=== PATIENT | female | born 1935 | race Caucasian/White ===

== ENCOUNTER 2017-09-03 22:28 | Inpatient (IN) | payer OTHER ==
[~2017-09-03] VITALS: Ht 152.4 cm; Wt 78.5 kg
[~2017-09-03 22:28] MED LIST: ATORVASTATIN CA10 MG PO; BENICAR HCT 251 TAB PO; BUFFERIN LOW DO81 MG PO; BUSPIRONE10 MG PO; CEPHALEXIN500 MG PO; DOCUSATE SODIU100 MG PO; MELATONIN1 MG PO; MELOXICAM15 MG PO; METOPROLOL SUCC25 MG PO; MIRALAX17 GM PO; NORVASC 5MG TAB5 MG PO; PERCOCET 325 MG1 TA2 PO; SILVADENE CREAM50 GM TOP; TRAMADOL50 MG PO; XANAX0.5 MG PO
--- NOTE | 2017-09-03 23:51 | RADIOLOGY REPORT ---
EXAMINATION: XR CHEST CLINICAL INFORMATION: Altered mental status. COMPARISON: 11/22/2013 TECHNIQUE: 2 views of the chest were obtained. FINDINGS: Normal cardiac and mediastinal silhouette. Low lung volumes with elevation right hemidiaphragm. Focal opacity from mild basilar atelectasis or focal infiltrate. No pulmonary edema. No significant effusion. No pneumothorax. Degeneration in the dorsal spine. IMPRESSION: Focal atelectasis or infiltrate in the right lower lung. Low lung volumes.
--- NOTE | 2017-09-03 23:56 | ED AMS/SEIZURE/WEAK/DIZZY ---
History of Present Illness General Chief Complaint: Altered Mental Status Stated Complaint: AMS Source: patient, family, old records Exam Limitations: dementia Vital Signs & Intake/Output Vital Signs & Intake/Output Vital Signs Date Time Temp Pulse Resp B/P B/P Pulse O2 O2 Flow FiO2 Mean Ox Delivery Rate 09/03 2230 96.0 83 20 197/85 98 Room Air ED Intake and Output 09/04 0000 09/03 1200 Intake Total Output Total Balance Patient 220 lb Weight Weight Estimated Measurement Method Allergies Coded Allergies: NO KNOWN ALLERGIES (02/26/14) Reconcile Medications Amlodipine (Norvasc 5MG Tab) 5 MG TABLET 1 TAB PO DAILY BLOOD PRESSURE ( Reported) Aspirin (Children's Aspirin) 81 MG TAB.CHEW 1 TAB PO DAILY HEART HEALTH ( Reported) Atorvastatin Calcium (Lipitor) 10 MG TABLET 1 TAB PO QPM CHOLESTEROL ( Reported) BUSPIRONE HCL (Buspirone HCl) 10 MG TABLET 1 TAB PO BID ANXIETY (Reported) Docusate Sodium 100 MG SGL 100 MG PO BID PRN CONSTIPATION Melatonin 1 MG TABLET 1 TAB PO AT BEDTIME SLEEP (Reported) Meloxicam 15 MG TABLET 1 TAB PO DAILY PAIN (Reported) Metoprolol Succinate 25 MG TAB.ER.24H 1 TAB PO DAILY BLOOD PRESSURE (Reported ) OLMESARTAN/HYDROCHLOROTHIAZIDE (Benicar Hct 40-25 MG Tablet) 40 MG-25 MG TABLET 1 TAB PO DAILY BLOOD PRESSURE (Reported) OXYCODONE HCL/ACETAMINOPHEN (Percocet 5-325 MG Tablet) 325 MG/5 MG TAB 1 TAB PO Q4-6 PRN PRN PAIN Polyethylene Glycol 3350 (Miralax) 17 GRAM/DOSE POWDER 17 GM PO DAILY CONSTIPATION (Reported) mix with water, juice, soda, coffee or tea Silver Sulfadiazine (Silvadene Cream 50GM ) 1 % CREAM..G. 1 ZEE TOP TIDPRN PRN WOUND TRAMADOL HCL (Tramadol) 50 MG TABLET 1 TAB PO DAILY PAIN (Reported) Core Measure Meds Pre-Hospital aspirin Triage Note: PT HERE WITH SON. PER SON PT HAS DEMENTIA AND WAS AT NEIGHBORS HOUSE SAYING THAT THERE WERE 100 PEOPLE OVER. POLICE WERE CALLED ALONG WITH SON. SON REPORTS THAT PT IS GETTING WORSE. SON FEELS THAT MOTHER NEEDS [employer]AC[employer]. SON REPORTS MOM WAS TAKING NAMENDIA AND RAN OUT A WEEK AGO. Triage Nurses Notes Reviewed? yes Onset: 1 month Duration: week(s):, changing over time, continues in ED, getting worse, intermittent Timing: recent history Injury Environment: home Severity: moderate, severe No Modifying Factors: none LMP (ages 10-50): post menopausal : No Patient currently breastfeeds: No HPI: 1 month prior to admission patient's son reports she has been becoming more confused with paranoia confabulation and hallucination of people in the home. There has been no fever chills nausea vomiting diarrhea abdominal pain chest pain shortness of breath dysuria rash bleeding. Currently she complains of headache and right shoulder pain with movement. Past History Travel History Traveled to [place] past 21 day No Medical History Any Pertinent Medical History? see below for history Neurological: dementia, TIA EENT: HEARING LOSS Cardiovascular: hypertension Respiratory: NONE Gastrointestinal: NONE Hepatic: NONE Renal: NONE Musculoskeletal: disk herniation, degen joint disease, osteoarthritis Psychiatric: NONE Endocrine: NONE Blood Disorders: NONE Cancer(s): NONE History of MRSA: No History of VRE: No History of CDIFF: No Tetanus Vaccine: 02/23/14 Surgical History Surgical History: non-contributory Psychosocial History Who do you live with Son Services at Home None What is your primary language Yoruba Tobacco Use: Never used ETOH Use: denies use Illicit Drug Use: denies illicit drug use Family History Hx Contributory? No Review of Systems Review of Systems Constitutional: Reports: no symptoms. EENTM: Reports: no symptoms. Respiratory: Reports: no symptoms. Cardiovascular: Reports: no symptoms. GI: Reports: no symptoms. Genitourinary: Reports: no symptoms. Musculoskeletal: Reports: no symptoms. Skin: Reports: no symptoms. Neurological/Psychological: Reports: see HPI, cognitive dysfunction, confusion, dementia. Hematologic/Endocrine: Reports: no symptoms. Immunologic/Allergic: Reports: no symptoms. All Other Systems: Reviewed and Negative Physical Exam Physical Exam General Appearance: well developed/nourished, alert, awake, anxious, comfortable , obese Head: atraumatic, normal appearance Eyes: Bilateral: normal appearance, PERRL, EOMI. Ears, Nose, Throat: normal pharynx, normal ENT inspection Neck: normal inspection, supple, full range of motion, no midline tenderness Respiratory: chest non-tender, no respiratory distress, quiet respiration, lungs clear, decreased breath sounds Cardiovascular: regular rate/rhythm, normal peripheral pulses, norml femoral pulses equa Peripheral Pulses: 4+ carotid (R), 4+ carotid (L) Gastrointestinal: normal bowel sounds, soft, non-tender, no organomegaly Back: normal inspection, normal range of motion, no vertebral tenderness Extremities: normal range of motion, no ligament instability Neurologic/Psych: no motor/sensory deficits, awake, alert, oriented x 3, normal gait, normal mood/affect, engine inspector II-XII nml as tested Reflexes: 2+: bicep (R), bicep (L). Skin: intact, normal color, warm/dry Lymphatic: no anterior cervical yajaira Core Measures ACS in differential dx? No CVA/TIA Diagnosis No Sepsis Present: No Sepsis Focused Exam Completed? No Progress Differential Diagnosis: CVA/stroke, dehydration, electrolyte imbalance, hypoglycemia, pneumonia Plan of Care: Orders Procedure Date/time Status Regular Diet 09/04 B Active Patient Data 09/04 50 Active OXYGEN SETUP (GEN) 09/04 12 Active Saline Lock 09/04 12 Active Admit to inpatient 09/04 12 Active Vital Signs 09/04 12 Active Activity/Ambulation 09/04 12 Active BLOOD CULTURE 09/04 12 Active Code Status 09/04 12 Active URINALYSIS 09/03 2257 Active TROPONIN LEVEL 09/03 2257 Complete MAGNESIUM 09/03 2257 Complete COMPREHENSIVE METABOLIC PANEL 09/03 2257 Complete CBC WITHOUT DIFFERENTIAL 09/03 2257 Complete EKG 09/03 2257 Active Laboratory Tests 09/03/17 2359: Anion Gap 10, Estimated GFR 60, BUN/Creatinine Ratio 27.8 H, Glucose 118 H, Calcium 9.3, Magnesium 2.0, Total Bilirubin 0.6, AST 25, ALT 29, Alkaline Phosphatase 71, Troponin I 0.03, Total Protein 7.0, Albumin 4.0, Globulin 3.0, Albumin/Globulin Ratio 1.3, CBC w Diff NO MAN DIFF REQ, RBC 5.01, MCV 82.3, MCH 27.7, MCHC 33.7, RDW 14.3, MPV 6.9 L, Gran % 59.9, Lymphocytes % 27.1, Monocytes % 10.2 H, Eosinophils % 2.3, Basophils % 0.5, Absolute Granulocytes 3.5, Absolute Lymphocytes 1.6, Absolute Monocytes 0.6, Absolute Eosinophils 0.1, Absolute Basophils 0 Microbiology 09/04 12 BLOOD: Blood Culture - ORD 09/04 12 BLOOD: Blood Culture - ORD Diagnostic Imaging: Viewed by Me: Radiology Read, CT Scan. Discussed w/RAD: Radiology Read, CT Scan. Radiology Impression: No CT acute intracranial pathology. Chronic changes cerebral volume loss and chronic microangiopathy changes CXR Impression: Focal atelectasis or infiltrate in the right lower lung. Low lung volumes. Initial ED EKG: normal axis, normal intervals, normal p-waves, normal QRS complex, normal sinus rhythm, no ST T wave changes Prior EKG: unchanged Rhythm Strip: normal sinus rhythm Departure Departure Time of Disposition: 124 Disposition: STILL A PATIENT Condition: Stable Clinical Impression Primary Impression: Pneumonia Secondary Impressions: Advanced dementia Referrals: Leesa WARREN,Shun Cobb (PCP/Family) Departure Forms: Customer Survey General Discharge Information Admission Note Spoke With: Rudy Azar MD Documentation of Exam: Documentation of any treatments & extenuating circumstances including Concerns Regarding Discharge (functional status, medication knowledge or non-compliance, living conditions, etc.) that warrant an admission rather than observation: IV antibiotics medication adjustment follow blood cultures ensure safety continuing care discharge planning
--- NOTE | 2017-09-04 00:03 | CT SCAN REPORT ---
EXAMINATION: CT HEAD WITHOUT CONTRAST CLINICAL INFORMATION: Increased confusion COMPARISON: None available for comparison. TECHNIQUE: Contiguous axial imaging was performed from the skull base to vertex without intravenous administration of contrast. FINDINGS: There is no evidence of acute intracranial hemorrhage or territorial infarction. No abnormal mass effect or midline shift is seen. Damon to white matter differentiation is well preserved. No extra-axial fluid collections are identified. Mild cerebral volume loss with subchondral ventricle prominence. Calcification in bilateral basal ganglia. Moderate periventricular and deep white matter hypodensities compatible with chronic microangiopathy. No acute calvarial abnormality.. Opacification of the right mastoid air cells. Left mastoid air cells, paranasal sinuses appear unremarkable. IMPRESSION: No CT acute intracranial pathology. Chronic changes cerebral volume loss and chronic microangiopathy changes.
[2017-09-04 00:10] LABS: ABSOLUTE BASOPHIL COUNT 0 /CUMM (0.0-0.2); ABSOLUTE EOSINOPHIL COUNT 0.1 /CUMM (0.0-0.7); ABSOLUTE GRANULOCYTE CT 3.5 /CUMM (1.4-6.5); ABSOLUTE LYMPH COUNT 1.6 /CUMM (1.2-3.4); ABSOLUTE MONOCYTE COUNT 0.6 /CUMM (0.10-0.60); BASOPHIL % 0.5 % (0.0-2.0); EOSINOPHIL % 2.3 % (0-5); GRANULOCYTE % 59.9 % (42.2-75.2); HEMATOCRIT 41.3 % (37-47); MEAN CORPUSCULAR HGB 27.7 PG (27.0-31.0); MEAN CORPUSCULAR HGB CONC 33.7 G/DL (33.0-37.0); MEAN CORPUSCULAR VOLUME 82.3 FL (81.0-99.0); MEAN PLATELET VOLUME 6.9 FL (7.4-10.4); PLATELET COUNT 284 /CUMM (130-400); RBC DISTRIBUTION WIDTH 14.3 % (11.5-14.5); RED BLOOD CELL CT 5.01 /CUMM (4.20-5.40); WHITE BLOOD CELL COUNT 5.8 /CUMM (4.8-10.8)
--- NOTE | 2017-09-04 00:57 | History & Physical ---
Darnell Rush MD 09/04/17 0056: General Information and HPI MD Statement: I have seen and personally examined DESTINY NG and documented this H&P. The patient is a 82 year old F who presented with a patient stated chief complaint of [pnuemonia, worsening dementia]. Source of Information: patient, family Exam Limitations: not alert/orientated, dementia History of Present Illness: Patient is an 82-year-old female with a PMH significant for dementia, HTN, HLD, CAD, bilateral carotid artery stenosis, TIAs, chronic back pain who was brought in by her son for worsening confusion, and bizarre behavior. Patient lives with her son however he is not present for large portions of the day. 2 days prior to admission the patient's son noticed that she had slurred speech and facial droop, he called 911 however the patient refused to get the ambulance, these symptoms also quickly resolved. Patient also suffered an unwitnessed fall 2 weeks ago. Patient has dementia at baseline and over the last 2-3 years patient 's son has noticed progressive worsening with bizarre behavior, worsening confusion, hallucinations. Today the patient went to her neighbor's house complaining that there were 100s of people in her house, when in reality nobody was there. Recently when the son believes the patient alone she franks pots while trying to cook. The patient has been refusing to go to her doctor's appointments. Patient has been complaining of constipation recently. Son does not know when her last bowel movement was. Per the son the patient has not been complaining of any she, fever, nausea, chest pain, shortness of breath. Allergies/Medications Allergies: Coded Allergies: NO KNOWN ALLERGIES (02/26/14) Past History Travel History Traveled to [place] past 21 day No Medical History Neurological: dementia, TIA EENT: HEARING LOSS Cardiovascular: CAD, hypertension, carotid artery stenosis Respiratory: NONE Gastrointestinal: NONE Hepatic: NONE Renal: NONE Musculoskeletal: disk herniation, degen joint disease, osteoarthritis Psychiatric: NONE Endocrine: NONE Blood Disorders: NONE Cancer(s): NONE History of MRSA: No History of VRE: No History of CDIFF: No Tetanus Vaccine: 02/23/14 Surgical History Surgical History: non-contributory Past Family/Social History Family History Relations & Conditions if any Relation not specified for: *No pertinent family history Psychosocial History Where do you live? Home Who Do You Live With? child Services at Home: None Smoking Status: Former Smoker ETOH Use: denies use Illicit Drug Use: denies illicit drug use Living Will? no Functional Ability ADLs Independent: dressing, eating, toileting. Needs Assist: bathing. Review of Systems Review of Systems Constitutional: Reports: see HPI. EENTM: Reports: no symptoms. Cardiovascular: Reports: no symptoms. Respiratory: Reports: no symptoms. GI: Reports: no symptoms. Genitourinary: Reports: no symptoms. Musculoskeletal: Reports: no symptoms. Skin: Reports: no symptoms. Neurological/Psychological: Reports: see HPI, confusion, dementia. Hematologic/Endocrine: Reports: no symptoms. Exam & Diagnostic Data Last 24 Hrs of Vital Signs/I&O Vital Signs Date Time Temp Pulse Resp B/P B/P Pulse O2 O2 Flow FiO2 Mean Ox Delivery Rate 09/04 0315 Room Air 09/04 0308 97.6 72 18 150/70 94 Room Air 09/04 0216 97.1 72 18 148/79 96 Room Air 09/03 2230 96.0 83 20 197/85 98 Room Air Intake & Output 09/04 0800 09/04 0000 09/03 1600 Intake Total Output Total 400 Balance -400 Output, Urine 400 Patient 179 lb 220 lb Weight Weight Bed scale Estimated Measurement Method Physical Exam General Appearance Alert, No Acute Distress, uncooperative with portions of the exam, oriented to person, but not place or time, answers some questions inapropriately Skin Temp/Moisture Exam: Warm/Dry Sepsis Skin Exam (color): Normal for Ethnicity Cardiovascular Regular Rate, Normal S1, Normal S2 Lungs Clear to Auscultation Abdomen Normal Bowel Sounds, Soft, No Tenderness Neurological Normal Tone, Sensation Intact, Cranial Nerves 3-12 NL Extremities 2+ pitting edema of the distal LEs Vascular Normal Pulses Sepsis Peripheral Pulse Location: Radial Sepsis Peripheral Pulse Exam: Normal Last 24 Hrs of Labs/Wilder: Laboratory Tests 09/04/17 0155: Urine Color YEL, Urine Clarity CLEAR, Urine pH 6.0, Ur Specific [place] 1.010, Urine Protein NEG, Urine Ketones NEG, Urine Nitrite NEG, Urine Bilirubin NEG, Urine Urobilinogen 0.2, Ur Leukocyte Esterase TRACE H, Ur Microscopic SEDIMENT EXAMINED, Urine WBC 1-3 H, Ur Epithelial Cells RARE, Urine Hemoglobin NEG, Urine Glucose NEG 09/03/17 2359: Anion Gap 10, Estimated GFR 60, BUN/Creatinine Ratio 27.8 H, Glucose 118 H, Calcium 9.3, Magnesium 2.0, Total Bilirubin 0.6, AST 25, ALT 29, Alkaline Phosphatase 71, Troponin I 0.03, Total Protein 7.0, Albumin 4.0, Globulin 3.0, Albumin/Globulin Ratio 1.3, CBC w Diff NO MAN DIFF REQ, RBC 5.01, MCV 82.3, MCH 27.7, MCHC 33.7, RDW 14.3, MPV 6.9 L, Gran % 59.9, Lymphocytes % 27.1, Monocytes % 10.2 H, Eosinophils % 2.3, Basophils % 0.5, Absolute Granulocytes 3.5, Absolute Lymphocytes 1.6, Absolute Monocytes 0.6, Absolute Eosinophils 0.1, Absolute Basophils 0 Microbiology 09/04 253 URINE ROUT: Urine Culture - COLB 09/05 219 BLOOD: Blood Culture - RECD 09/04 213 BLOOD: Blood Culture - RECD Diagnostic Data CXR Results FINDINGS: Normal cardiac and mediastinal silhouette. Low lung volumes with elevation right hemidiaphragm. Focal opacity from mild basilar atelectasis or focal infiltrate. No pulmonary edema. No significant effusion. No pneumothorax. Degeneration in the dorsal spine. IMPRESSION: Focal atelectasis or infiltrate in the right lower lung. Low lung volumes. Other Results CT head w/o IV contrast FINDINGS: There is no evidence of acute intracranial hemorrhage or territorial infarction. No abnormal mass effect or midline shift is seen. Damon to white matter differentiation is well preserved. No extra-axial fluid collections are identified. Mild cerebral volume loss with subchondral ventricle prominence. Calcification in bilateral basal ganglia. Moderate periventricular and deep white matter hypodensities compatible with chronic microangiopathy. No acute calvarial abnormality.. Opacification of the right mastoid air cells. Left mastoid air cells, paranasal sinuses appear unremarkable. IMPRESSION: No CT acute intracranial pathology. Chronic changes cerebral volume loss and chronic microangiopathy changes. Assessment/Plan Assessment: Patient is an 82-year-old female with a PMH significant for dementia, HTN, HLD, CAD, bilateral carotid artery stenosis, TIAs, chronic back pain who was brought in by her son for worsening confusion, and bizarre behavior. Patient has had worsening dementia, son does not believe that he can care for her anymore, CXR showing atelectasis versus infiltrate of the right lower lobe. Vital signs on admission: T 96, HR 83, BP 187/85 (decreased 148/85), pulse ox 98 % on room air Labs significant for mildly elevated BUN and UA showing trace leukocyte esterase , WBC 13 Problem list #Worsening dementia #Possible aspiration versus community-acquired pneumonia, patient is afebrile with no leukocytosis but chest x-ray showing possible right lower lobe infiltrate #patient's son reports significant worsening cognitive decline with worrisome symptoms including burning pots/pans while cooking and unwitnessed fall, with the son being absent for large portions of time, questionable case of neglect #Chronic medical problems Plan -Admit to general medicine -Continue IV Unasyn -Formal swallow eval in a.m. -Follow-up blood and urine cultures -PT/OT in a.m. -Continue home medications -Goals of care discussion with patient and son about long-term accommodations given that some is no longer comfortable caring for the patient at home Diet: Heart healthy, mechanical soft, regular thin liquids DVT prophylaxis: Lovenox, Alps CODE STATUS: DNR/DNI As Ranked By This Provider Problem List: 1. Pneumonia 2. Advanced dementia Core Measures/Misc (02/20) Acute Coronary Syndrome ACS Diagnosis: No Congestive Heart Failure Congestive Heart Failure Diagnosis No Cerebrovascular Accident CVA/TIA Diagnosis: No VTE (View Protocol) VTE Risk Factors Age>40 No Mechanical VTE Prophylaxis d/t N/A MechProphylax Ordered No VTE Pharm Prophylaxis d/t NA PharmProphylax ordered Sepsis (View protocol) Sepsis Present: No Jose Maria Falcon 09/04/17 0228: General Information and HPI Allergies/Medications Home Med list Amlodipine Besylate (Norvasc) 5 MG TABLET 1 TAB PO DAILY HTN (Reported) Aspirin (Aspirin*) 81 MG TAB.CHEW 1 TAB PO DAILY HEART (Reported) Docusate Sodium (Colace) 100 MG CAPSULE 1 CAP PO BID CONSTIPATION (Reported) Metoprolol Succinate 50 MG TAB.ER.24H 1 TAB PO DAILY HTN (Reported) Olmesartan/Hydrochlorothiazide (Benicar Hct 40-12.5 MG Tablet) 40 MG-12.5 MG TABLET 1 TAB PO DAILY HTN (Reported) Polyethylene Glycol 3350 (Miralax) 17 GRAM POWD.PACK 1 PAC PO DAILY CONSTIPATION (Reported) dissolve in water Resident Review Statement Resident Statement: examined this patient, discussed with epidemiology intern, agreed with epidemiology intern, reviewed images Other Findings: 82-year-old woman from home, with bilateral hearing impairment, past medical history significant for dementia, hypertension, hyperlipidemia, coronary disease , bilateral severe carotid artery stenosis, multiple TIAs, chronic back pain, depression brought in by son for bizarre behavior. Patient is a poor historian and history was obtained from her son who is present in the room. Patient lives with her son at home. He has noticed that her dementia has been progressively worsening since the past 2 years. Yesterday evening she was home alone and she went to her next door neighbors to complain that there were 100 people in her house. On the son had called 911 as he noticed her slurring speech with left-sided facial droop. By the time EMS came her symptoms had resolved and she refused to go to the hospital. 2 weeks ago she had an witnessed fall. Son states that she is not reliable with regards to cooking but however she does bath and ambulate independently. She refused home services about 3 years ago. She has not complained of any cough, fever, chills, nausea, vomiting abdominal pain, diarrhea, urinary symptoms. Endorses constipation. Vitals temperature 96.0, heart rate 83, blood pressure 187/85--> 148/79, 98% on room air examination as above. Labs unremarkable Problem list: Dementia with bizarre behavior/hallucination Community acquired pneumonia vs aspiration pneumonia Hypertension Coronary artery disease/bilateral carotid artery stenosis Assessment/plan: Admitted to general medicine floor, vital per protocol Will continue with IV Unasyn, swelling eval in the a.m., pending blood cultures and urinary culture PT/OT to evaluate and treat geriatric consult on tuesday continue home meds of toprol, benicar converted to losartan and htcz and aspirin heart healthy diet dvt ppx sc lovenox Code status DNR/DNI will need LTC placement Rudy Azar MD 09/04/17 0541: Attending MD Review Statement Attending Statement Attending MD Statement: examined this patient, discuss w/resident/PA/GAMING TABLE OPERATOR, agreed w/resident/PA/GAMING TABLE OPERATOR, reviewed EMR data (avail) Attending Assessment/Plan: Ms. Ng is 82-year-old female with history of worsening dementia, hypertension, dyslipidemia, bilateral significant carotid artery stenosis, multiple transient ischemic attacks and is being brought to the ED by the son has the patient had been acting differently recently. Apparently patient has been hallucinating and knocking on neighbors doors and confused. Patient has hard of hearing and unable to obtain much history. On examination patient was initially hypertensive with systolic blood pressure in the 180s, however repeat blood pressure was found to be 148/79, saturating well controlled man with heart rate of 83 and afebrile Chest x-ray shows evidence of right-sided lower lobe infiltrate. Assessement 1. Worsening dementia 2. Right lower lobe infiltrate - CAP vs Aspiration 3. Hypertension Plan Obtain MMSE in the AM. Consider Lucila-Psych consult Not taking namenda recently Initiate IV Unasyn - recieved one dose of Ceftriaxone and Azithromax in ER Needs case management and PT evaluation Son appears to be caregiver - however not very reliabe ?Elderly neglect - appreciate nephrology social worker asssitance Swallow evaluation to assess for microaspiration Continue with other home medications
[2017-09-04] MEDS ORDERED: NORVASC5 M1 PO (02:22)
[2017-09-04] MEDS ORDERED: ASPIRIN81 M4 PO (02:22)
[2017-09-04] MEDS ORDERED: COLACE100 M1 PO (02:22)
[2017-09-04] MEDS ORDERED: BENICAR HCT 401 EACH PO (02:23)
[2017-09-04] MEDS ORDERED: METOPROLOL SUCC50 M2 PO (02:23)
[2017-09-04] MEDS ORDERED: MIRALAX17 G1 PO (02:23)
[2017-09-04 03:08] VITALS: BP 150/70
[2017-09-04 07:33] VITALS: BP 142/80
--- NOTE | 2017-09-04 13:53 | PN- Att Addend ---
Attending Addendum Attending Brief Note Patient seen and examined. She is in 82-year-old female with past medical history of dementia, coronary artery disease, hypertension and carotid disease who is here with worsening dementia, inability to care for herself at home and issues with care at home. Despite a lack of fever or white count she has a right lower lobe infiltrate and has been started empirically on IV Unasyn for the possibility of aspiration pneumonia. She is eating a diet now and a formal swallow eval is pending. Continued her Norvasc, metoprolol, hydrochlothiazide and arb for the high blood pressure and continue the baby aspirin. PT eval, case management eval and follow-up on swallow eval.
[2017-09-04 14:37] VITALS: BP 122/60
[2017-09-05 05:55] VITALS: BP 128/68
--- NOTE | 2017-09-05 07:17 | PN- Housestaff ---
David Simpson 09/05/17 0716: Subjective Follow-up For: Worsening dementia RLL infiltrate - CAP vs Aspiration Subjective: Patient required a jeff and soft restraints after trying to get OOB and pull IV lines. She was given IV Zyprexa 5 mg Review of Systems Constitutional: Reports: see HPI. Objective Last 24 Hrs of Vital Signs/I&O Vital Signs Date Time Temp Pulse Resp B/P B/P Pulse O2 O2 Flow FiO2 Mean Ox Delivery Rate 09/05 554 98.4 74 20 128/68 94 Room Air 09/04 1600 Room Air 09/04 1437 99.0 66 19 122/60 94 Room Air 09/04 0914 78 140/80 09/04 0733 97.9 80 20 142/80 96 Room Air Intake & Output 09/05 0800 09/05 0000 09/04 1600 Intake Total 240 100 730 Output Total 300 300 800 Balance -60 -200 -70 Intake, IV 130 Intake, Oral 240 100 600 Number 0 Bowel Movements Output, Urine 300 300 800 Patient 173 lb Weight Physical Exam General Appearance: Alert Cardiovascular: Normal S1, Normal S2 Lungs: Clear to Auscultation, Normal Air Movement Abdomen: Normal Bowel Sounds, Soft, No Tenderness Current Medications: Current Medications Sig/Keisha Start time Last Medication Dose Route Stop Time Status Admin Amlodipine Besylate 5 MG DAILY 09/04 1000 AC 09/04 PO 0914 Ampicillin Sodium/ 3,000 MG Q6 09/04 0600 AC 09/05 Sulbactam Sodium IV 0528 Sodium Chloride 100 ML Aspirin 81 MG DAILY 09/04 1000 AC 09/04 PO 0917 Docusate Sodium 100 MG DAILY NEEDED PRN 09/04 0145 AC PO Enoxaparin Sodium 40 MG DAILY 09/04 1000 AC 09/04 SC 0914 Hydrochlorothiazide 12.5 MG DAILY 09/04 1000 AC 09/04 PO 0916 Influenza Virus 0.5 ML ONCE ONE 09/04 1000 DC Vaccine IM 09/04 1001 Losartan Potassium 100 MG DAILY 09/04 1000 AC 09/04 PO 0914 Metoprolol Succinate 50 MG DAILY 09/04 1000 AC 09/04 PO 0915 Olanzapine 5 MG ONCE ONE 09/04 1845 DC 09/04 IM 09/04 1846 1855 Polyethylene Glycol 17 GM DAILY 09/04 1000 AC PO Last 24 Hrs of Lab/Wilder Results Last 24 Hrs of Labs/Mics: Laboratory Tests 09/05/17 0650: Sodium Pending, Potassium Pending, Chloride Pending, Carbon Dioxide Pending, Anion Gap Pending, BUN Pending, Creatinine Pending, BUN/Creatinine Ratio Pending , CBC w Diff Pending, WBC Pending, RBC Pending, Hgb Pending, Hct Pending, MCV Pending, MCH Pending, MCHC Pending, RDW Pending, Plt Count Pending, MPV Pending Lines/Diet/Fluids Restraints: Jeff, right wrist, left wrist Assessment/Plan Assessment: Mr. Corado an 82-year-old female with a PMH significant for dementia, HTN, HLD, CAD, bilateral carotid artery stenosis, TIAs, chronic back pain who was brought in by her son for worsening confusion, and bizarre behavior. Problem list: Worsening dementia RLL infiltrate - ?CAP vs Aspiration Plan: Discontinue IV Unasyn, watch off antibiotics Follow-up blood and urine cultures Formal swallow eval today TSH/T4, Lyme titer, Vit B12, Folate PT/OT Psych recommendations appreciated Will discuss with family if patient's current symptoms are baseline Diet: Heart healthy, mechanical soft, regular thin liquids DVT prophylaxis: Lovenox, Alps CODE STATUS: DNR/DNI Problem List: 1. Advanced dementia 2. Pneumonia Pain Ratin Pain Location: NA Pain Goal: Remain pain free Pain Plan: NA Tomorrow's Labs & Rationales: none Mirela WARREN,Josephine 09/05/17 1143: Attending MD Review Statement Attending Statement Attending MD Statement: examined this patient, discuss w/resident/PA/POST HOLE DIGGING MACHINE OPERATOR, agreed w/resident/PA/POST HOLE DIGGING MACHINE OPERATOR, reviewed EMR data (avail), discussed with nursing, discussed with case mgmt, amended to note Attending Assessment/Plan: Patient seen and examined. Mildly agitated. Bilateral wrist restraints in place. Unable to hold a conversation with the patient due to dementia. Did not appear to be in any painful or respiratory distress. On examination heart sounds are regular. Lungs are clear. She has no peripheral edema. Abdomen is soft and nontender. Laboratory data shows normal CBC her sodium level is trending upwards. She is afebrile. She has no leukocytosis. Chest x-ray does not show any convincing evidence of pneumonia at this time. She is not requiring oxygen supplementation. She has no respiratory symptoms. Appears highly unlikely that patient has pneumonia at this time. Problems: 1. Dementia with behavioral disturbance. Per family's report patient's current mental status is not baseline suggesting an acute delirium. 2. Hypernatremia. 3. Hypertension 4. Coronary artery disease 5. Query TIA prior to admission. Plan: -Patient does not appear to have any acute metabolic etiology to her altered mentation that led to hospitalization. At this time she is hyponatremic level because an exacerbation of any underlying delirium. -Calculate free water deficit and correct with D5W. -Correct hypokalemia orally. -Psychiatric consultation for assistance in managing her dementia with behavioral changes. -Avoid all delirium triggers. De-escalate restraints as tolerated. -Please call son to set up family meeting for goals of care discussion. Patient will benefit from geriatric and palliative care follow-up in the outpatient setting. -Repeat serum chemistry in a.m. No need to repeat CBCs tomorrow unless there is a change in her clinical condition.
[2017-09-05 08:16] LABS: ABSOLUTE BASOPHIL COUNT 0.1 /CUMM (0.0-0.2); ABSOLUTE EOSINOPHIL COUNT 0.1 /CUMM (0.0-0.7); ABSOLUTE GRANULOCYTE CT 5.4 /CUMM (1.4-6.5); ABSOLUTE LYMPH COUNT 1.2 /CUMM (1.2-3.4); ABSOLUTE MONOCYTE COUNT 0.8 /CUMM (0.10-0.60); BASOPHIL % 0.8 % (0.0-2.0); GRANULOCYTE % 71.5 % (42.2-75.2); HEMATOCRIT 42.5 % (37-47); MEAN CORPUSCULAR HGB 27.7 PG (27.0-31.0); MEAN CORPUSCULAR HGB CONC 33.4 G/DL (33.0-37.0); MEAN PLATELET VOLUME 7.4 FL (7.4-10.4); PLATELET COUNT 284 /CUMM (130-400); RBC DISTRIBUTION WIDTH 14.5 % (11.5-14.5); RED BLOOD CELL CT 5.11 /CUMM (4.20-5.40); WHITE BLOOD CELL COUNT 7.5 /CUMM (4.8-10.8)
[2017-09-05 16:12] VITALS: BP 180/86
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
--- NOTE | 2017-09-05 19:42 | ULTRASOUND REPORT ---
EXAMINATION: US DUPLEX CAROTID AND VERTEBRAL CLINICAL INFORMATION: Confusion. Transient ischemic attack. COMPARISON: CT images of the neck from 11/22/2014. TECHNIQUE: Real-time ultrasound and Doppler techniques (integrating B-mode 2D vascular images, Doppler spectral analysis and color flow Doppler imaging) were utilized to interrogate the extracranial carotid and vertebral arteries bilaterally. The degree of stenosis determined by criteria similar to NASCET. lead medical technologist reports that patient was not cooperative and was moving and talking throughout the exam. FINDINGS: RIGHT VESSELS - There is antegrade flow within the carotid and vertebral arteries. Intimal thickening along the wall of the CCA and calcified plaque along the posterior wall of the distal CCA. The [id number] ICA could not be evaluated due to lack of patient cooperation Doppler derived peak systolic velocity measurements (cm/sec) were as follows: Distal CCA: 76 ICA (proximal): 147 (with end diastolic of 42) ECA: 151 Vertebral: 35 ICA/CCA ratio is 1.93 LEFT VESSELS - There is antegrade flow within the carotid and vertebral arteries. Intimal thickening along the wall of the CCA. Doppler derived peak systolic velocity measurements (cm/sec) were as follows: Distal CCA: 92 ICA: Unable to evaluate due to lack of patient cooperation. ECA: Unable to evaluate due to lack of patient cooperation. Vertebral: 78 IMPRESSION: Suboptimal sonographic examination of the carotid vessels due to lack of patient cooperation. Doppler imaging findings suggest presence of 50-69% stenosis of the proximal right ICA. The patient had near complete occlusion of the left ICA on the neck CT angiography exam of 11/22/2014. However, the left ICA could not be evaluated on today's test.
[2017-09-05 22:33] VITALS: BP 108/62
[2017-09-06 06:45] VITALS: BP 118/60
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
--- NOTE | 2017-09-06 07:46 | Discharge Summary ---
Visit Information Visit Dates Admission Date: 09/04/17 Discharge Date: 09/09/17 Hospital Course Course Attending Physician: Josephine Dietz MD Primary Care Physician: Shun Landers MD Hospital Course: Patient is an 82-year-old female with a PMH significant for dementia, HTN, HLD, CAD, bilateral carotid artery stenosis, TIAs, chronic back pain who was brought in by her son for worsening confusion, hallucinations and bizarre behavior. Patient had an episode of TIA 2 days prior to admission. Assessement 1. Dementia with behavioral disturbance. Per family's report patient's current mental status is not baseline suggesting an acute delirium. 3. Hypertension Hospital course At admission Labs and imaging did not show any infection. Head CT was negative for any acute injuries. Given questionable TIA, character ultrasound was performed which showed 50-69% stenosis of her right ICA. Patient had a near complete occlusion of her left ICA in a previous carotid ultrasound. She was treated on the [facility] floor with IV fluids and treated with IV Unasyn for possible aspiration pneumonia. No growth on blood and urine cultures.TSH/T4 and Folate wnl, Lyme titer negative, Vit B12 low. There was no acute source of infection and therefore abtibiotics were discontinued. Electrolyte were replenished appropriately. Patient was evaluated by swallow team and recommended pured and regular thin diet. She remained confused during the hospital stay and often put on restraints and [place] for her agitation . Psychiatry evaluated the patient and recommended Seroquel/Haldol as needed for agitation. Delirium triggers were avoided and patient was redirected frequently.[facility] however giving her advanced dementia with behavioral changes will benefit from being admitted into a [facility] unit where she can be evaluated continuously for adjustment of her regimen A detailed family meeting was held by son who was in agreement that the patient needed to be at a rehabilitation facility since it was not safe for her to stay at home. She had history of confusion, hallucination and episodes of franks on the stove. So she was discharged to [facility] facility. Needs a geriatric workup. Allergies: Coded Allergies: NO KNOWN ALLERGIES (02/26/14) Disposition Summary Disposition Principal Diagnosis: Dementia with behavioral disturbance Additional Diagnosis: delirium Discharge Disposition: SNF Discharge Instructions General Discharge Information Code Status: Do Not Resucitate/Intubat Patient's Diet: Regular, puree/thin Patient's Activity: as tolerated Follow-Up Instructions/Appts: Monitor LFT, ammonia, amylase while on Depakote Obtain a valproic acid level after the 9th dose at trough Continue Namenda upward titration Follow up with [facility] to reassess frequency of Depakote Medications at Discharge Discharge Medications: Stop taking the following medications: Atorvastatin Calcium (Lipitor) 10 MG TABLET ORAL Every night Qty = 90 Melatonin (Melatonin) 1 MG TABLET ORAL AT BEDTIME BUSPIRONE HCL (Buspirone HCl) 10 MG TABLET ORAL TWICE DAILY Meloxicam (Meloxicam) 15 MG TABLET ORAL DAILY TRAMADOL HCL (Tramadol) 50 MG TABLET ORAL DAILY Silver Sulfadiazine (Silvadene Cream 50GM ) 1 % CREAM..G. On the skin THREE TIMES A DAY NEEDED as needed for WOUND Days = 14 OXYCODONE HCL/ACETAMINOPHEN (Percocet 5-325 MG Tablet) 325 MG/5 MG TAB ORAL EVERY 4-6 HOURS NEEDED as needed for PAIN Qty = 15 Continue taking these medications: Amlodipine Besylate (Norvasc) 5 MG TABLET 1 Tablet ORAL DAILY Comments: Last Taken: 09/09/17 Time: 9:39 AM Aspirin (Aspirin*) 81 MG TAB.CHEW 1 Tablet ORAL DAILY Comments: Last Taken: 09/09/17 Time: 9:40 AM Docusate Sodium (Colace) 100 MG CAPSULE 1 Capsule ORAL TWICE DAILY Comments: NOT GIVEN IN HOSPITAL Metoprolol Succinate (Metoprolol Succinate) 50 MG TAB.ER.24H 1 Tablet ORAL DAILY Comments: Last Taken: 09/09/17 Time: 9:40 AM Olmesartan/Hydrochlorothiazide (Benicar Hct 40-12.5 MG Tablet) 40 MG-12.5 MG TABLET 1 Tablet ORAL DAILY Comments: Last Taken: 09/09/17 Time: 9:0 AM Polyethylene Glycol 3350 (Miralax) 17 GRAM POWD.PACK 1 Packet ORAL DAILY Instructions: dissolve in water Comments: Last Taken: 09/09/17 Time: 9:40 AM Start taking the following new medications: Divalproex Sodium (Depakote Sprinkle) 125 MG CAP.SPRINK 250 Milligram ORAL Q8H Qty = 42 No Refills Memantine HCl (Namenda) 5 MG TABLET 5 Milligram ORAL SEE INSTRUCTIONS Qty = 30 No Refills Instructions: TAKE 10 MG DAILY AND 5 MG QHS FOR 1 WEEK THEN TAKE 10 MG TWICE DAILY THERE AFTER Copies To: Leesa WARREN,Shun Cobb; Tyshawn Richard APRN Attending MD Review Statement Documenting Attending: Josephine Dietz MD Other Findings: Patient is medically stable [facility].
[2017-09-06 13:52] VITALS: BP 102/62
[2017-09-06 22:34] VITALS: BP 134/72
[2017-09-07 06:24] VITALS: BP 124/58
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
[2017-09-07 13:57] VITALS: BP 138/62
--- NOTE | 2017-09-07 18:07 | PN- Psychiatry ---
Assessment/Plan Impression: Yesterday, during the period of agitation, the medical team reports that the patient responded well to haloperidol 0.5 mg. However, last night, she was not redirectable and agitated, and haloperidol 0.5 mg was not effective. The patient probably would've responded to a larger dose, such as 1 mg. The medical team is asking about olanzapine as a replacement for haloperidol, and we have no objection to this, as long as it is used as a last resort, after redirection, soft restraints have failed. A portion of the patient's change in mentation had been occurring over the past year or so, according to her son, Mahamed. However there still is a component that was more recent in origin, suggestive of a toxic or metabolic etiology. Suggestion: 1. Discontinue haloperidol. 2. Olanzapine/Zyprexa 2.5 mg by mouth every 12 hours as needed for severe agitation. Hold for oversedation or respiratory depression. Hold for hypokalemia or hypomagnesemia. Hold for QTC greater than 475 ms, or arrhythmia. If the patient is unable to take PO, consider administration by IM. ( Alternatively, consider haloperidol 1 mg IM every 12 hours as needed.) Do not use the IV route. If olanzapine 2.5 mg is ineffective, consider increasing to 5 mg. 3. Continue vitamin B12, as indicated. 4. Urine culture. We will continue to follow along with you. Subjective Subjective: The patient was sitting in her chair, with her safety monitor present. She began pulling out her IV line, requiring redirection from the sitter. The patient is pleasantly confused, and unable to answer orientation questions, which she answers by talking about random topics. She is not in any apparent distress. Review of Systems Neurological/Psychological: Reports: confusion. Objective Last 24 Hrs of Vital Signs/I&O Vital Signs Date Time Temp Pulse Resp B/P B/P Pulse O2 O2 Flow FiO2 Mean Ox Delivery Rate 09/07 1357 97.3 78 20 138/62 93 Room Air 09/07 1014 98.1 70 132/78 09/07 1014 70 132/78 09/07 1014 70 132/78 09/07 0624 97.6 80 18 124/58 93 09/06 2234 97.8 68 18 134/72 97 Room Air Intake & Output 09/07 1600 09/07 0800 09/07 0000 Intake Total 1120 640 490 Output Total 800 600 Balance 320 640 -110 Intake, IV 400 400 250 Intake, Oral 720 240 240 Output, Urine 800 600 Patient 173 lb Weight Physical Exam: Not performed Physical Exam General Appearance: no apparent distress, alert, awake, obese Neurologic/Psychiatric: awake, alert Current Medications: Current Medications Sig/Keisha Start time Last Medication Dose Route Stop Time Status Admin Amlodipine Besylate 5 MG DAILY 09/04 1000 AC 09/07 PO 1014 Aspirin 81 MG DAILY 09/04 1000 AC 09/07 PO 1014 Cyanocobalamin 250 MCG DAILY 09/06 1128 AC 09/07 PO 1014 Dextrose/Sodium 1,000 ML ONCE ONE 09/06 1600 DC 09/06 Chloride IV 09/07 1159 1652 Docusate Sodium 100 MG DAILY NEEDED PRN 09/04 0145 AC PO Enoxaparin Sodium 40 MG DAILY 09/04 1000 AC 09/07 SC 1015 Haloperidol 1 MG ONCE ONE 09/07 1230 DC 09/07 IM 09/07 1231 1229 Haloperidol 0.5 MG Q6P PRN 09/06 1645 DC 09/07 IM 0315 Hydrochlorothiazide 12.5 MG DAILY 09/04 1000 AC 09/07 PO 1014 Losartan Potassium 100 MG DAILY 09/04 1000 AC 09/07 PO 1014 Memantine 10 MG DAILY 09/07 1000 AC 09/07 PO 1014 Metoprolol Succinate 50 MG DAILY 09/04 1000 AC 09/07 PO 1014 Olanzapine 2.5 MG Q12P PRN 09/07 0915 CAN PO Olanzapine 2.5 MG Q12P PRN 09/07 0915 AC 09/07 PO 1029 Patient Medication 1 ED ONE ONE 09/07 1045 DC Teaching ED 09/07 1046 Polyethylene Glycol 17 GM DAILY 09/04 1000 AC 09/07 PO 1015 Quetiapine Fumarate 12.5 MG BID PRN 09/07 0900 DC PO Results Last 24 Hrs of Labs/Mics: Laboratory Tests 09/06 0717 Chemistry Sodium (137 - 145 mmol/L) 140 Potassium (3.5 - 5.1 mmol/L) 3.6 Chloride (98 - 107 mmol/L) 102 Carbon Dioxide (22 - 30 mmol/L) 28 Anion Gap (5 - 16) 10 BUN (7 - 17 mg/dL) 25 H Creatinine (0.5 - 1.0 mg/dL) 1.0 Estimated GFR (>60 ml/min) 53 L BUN/Creatinine Ratio (7 - 25 %) 25.0
[2017-09-08 06:00] VITALS: BP 130/80
--- NOTE | 2017-09-08 07:06 | PN- Housestaff ---
David Simpson 09/08/17 0706: Subjective Follow-up For: Worsening dementia RLL infiltrate - ruled out Hypernatremia - resolved Subjective: Patient agitated overnight and required soft upper restraints. Called son to discuss recommendation for Geriatric psych to get patient symptoms under control. Patient son in agreement with Geriatric psych placement and subsequent transfer to [facility] once stable. Permission given to get IV access and labs by son. Review of Systems Constitutional: Reports: see HPI. Objective Last 24 Hrs of Vital Signs/I&O Vital Signs Date Time Temp Pulse Resp B/P B/P Pulse O2 O2 Flow FiO2 Mean Ox Delivery Rate 09/089 97.8 62 19 112/56 92 Room Air 09/08 1600 Room Air 09/08 1423 98.6 62 20 128/54 93 Room Air 09/08 1211 97.4 72 20 148/62 95 Room Air 09/08 0920 Room Air 09/08 0917 78 128/70 / 0916 78 128/70 09/08 0916 78 128/70 / 0600 98.3 67 18 130/80 100 Room Air 09/08 0000 Room Air Intake & Output 09/08 1600 09/08 0800 09/08 0000 Intake Total 570 500 Output Total Balance 570 500 Intake, IV 450 Intake, Oral 120 500 Number 0 Bowel Movements Physical Exam General Appearance: Disoriented, Obese Cardiovascular: Regular Rate, Normal S1, Normal S2 Lungs: Clear to Auscultation, Normal Air Movement Abdomen: Normal Bowel Sounds, Soft, No Tenderness Current Medications: Current Medications Sig/Keisha Start time Last Medication Dose Route Stop Time Status Admin Amlodipine Besylate 5 MG DAILY 09/04 1000 AC 09/08 PO 0916 Aspirin 81 MG DAILY 09/04 1000 AC 09/08 PO 0917 Cyanocobalamin 250 MCG DAILY 09/06 1128 AC 09/08 PO 0916 Dextrose/Sodium 1,000 ML Q13H 09/08 0915 AC 09/08 Chloride IV 0929 Divalproex Sodium 250 MG Q8H 09/08 1600 AC PO Docusate Sodium 100 MG DAILY NEEDED PRN 09/04 0145 AC PO Enoxaparin Sodium 40 MG DAILY 09/04 1000 AC 09/08 SC 0917 Hydrochlorothiazide 12.5 MG DAILY 09/04 1000 AC 09/08 PO 0917 Losartan Potassium 100 MG DAILY 09/04 1000 AC 09/08 PO 0917 Memantine 21 MG DAILY 09/09 1000 UNVr PO Memantine 10 MG DAILY 09/07 1000 DC 09/08 PO 0916 Metoprolol Succinate 50 MG DAILY 09/04 1000 AC 09/08 PO 0916 Olanzapine 5 MG Q12P PRN 09/08 0915 DC 09/08 PO 0916 Olanzapine 2.5 MG Q12P PRN 09/07 0915 DC 09/07 PO 1029 Polyethylene Glycol 17 GM DAILY 09/04 1000 AC 09/07 PO 1015 Valproic Acid 250 MG Q8H 09/08 1600 CAN PO Last 24 Hrs of Lab/Wilder Results Last 24 Hrs of Labs/Mics: Laboratory Tests 09/08/17 1349: AST Cancelled, ALT Cancelled, Alkaline Phosphatase Cancelled, Amylase Cancelled 09/08/17 1349: Total Bilirubin 0.7, Direct Bilirubin 0.5 H, AST 52 H, ALT 48, Alkaline Phosphatase 63, Ammonia 23, Lactate Dehydrogenase 688 H, Amylase 64 Assessment/Plan Assessment: Mr. Corado an 82-year-old female with a PMH significant for dementia, HTN, HLD, CAD, bilateral carotid artery stenosis, TIAs, chronic back pain who was brought in by her son for worsening confusion, and bizarre behavior. Problem list: Worsening dementia RLL infiltrate - ruled out Hypernatremia - resolved Plan: Discontinue Quetiapine 12.5 mg BID due to QTc prolongation IM Haldol if necessary but with caution given QTc prolongation Continue Mementine 21 mg - verified with Dr. Landers office Continue Vitamin B12 supplementation Watch off antibiotics No growth on blood and urine cultures TSH/T4 and Folate wnl, Lyme titer negative, Vit B12 low Carotid US showe 50-69% stenosis in proximal R ICA, L ICA could not be visualized Await Geriatric psych placement Psych recommendations appreciated Diet: mechanical soft, thin liquids DVT prophylaxis: Lovenox, Alps CODE STATUS: DNR/DNI Problem List: 1. B12 deficiency 2. Advanced dementia Pain Ratin Pain Location: NA Pain Goal: Remain pain free Pain Plan: NA Tomorrow's Labs & Rationales: none Josephine Dietz MD 09/08/17 1100: Attending MD Review Statement Attending Statement Attending MD Statement: examined this patient, discuss w/resident/PA/DONOR RELATIONS COORDINATOR, agreed w/resident/PA/DONOR RELATIONS COORDINATOR, reviewed EMR data (avail), discussed with nursing, discussed with case mgmt, amended to note Attending Assessment/Plan: Patient seen and examined. Overnight events noted. Patient's mental status continues to wax and wanes.She has good periods during the day where she is cooperative with staff and ambulate around the unit. Then she becomes very agitated and even violent towards the staff. There is currently no clinical evidence of any toxic or metabolic component contributing to her symptomatology which according to the son has been progressive over the past year leading to the point where he states he is no longer able to care for her. [facility] however giving her advanced dementia with behavioral changes she will benefit from being admitted into a [facility] unit where she can be evaluated continuously for adjustment of her regimen. Patient becomes agitated her Oral intake diminishes. We will provide her with IV hydration. This may be discontinued once she starts to eat and drink appropriately. Continue to avoid delirium triggers. Continue antipsychotic therapy as recommended by the psychiatry service. Follow for further recommendations. Patient has known history of carotid artery disease.Carotid Doppler done shows complete occlusion of her left ICA which was identified back in 2014. She also has findings suggestive of 50-69% stenosis in the right ICA. Due to he advanced dementia she is not a candidate forr surgical intervention. Follow-up echocardiogram. Continue aspirin therapy. May consider statin therapy upon discharge however given her advanced age it is questionable what benefit she will receive from this medication. Discontinue hydrochlorothiazide for now. Repeat serum chemistry in a.m.
--- NOTE | 2017-09-08 11:39 | PN- Psychiatry ---
See Addendum Assessment/Plan Impression: The patient has had some episodes of agitation since our last visit. Haloperidol 0.5 mg PRN was effective on one occastion two days ago, but not sufficient that evening. The medical team suggested changing to olanzapine, which was started at 2.5 mg PO q12 h PRN for agitation or hallucinations. This dose was insufficient for patient and staff safety, and it was increased to 5 mg on the same schedule. Since these medications have started, EKG has increased QTc from 446 to 489 mS. There may be other contributions to this prolongation, beside the antipsychotics. We usually suggest holding QTc prolonging agents if that value exceeds 475 mS. We also note that there is one PVC on the most recent EKG of 09/08. There are no recent studies for potassium and magnesium. We suggest stopping all antipsychotics, due to the cardiac arrangements, and starting valproic acid, probably best administered as the liquid form, Depakene. Before this is done, baseline labs should be drawn for ammonia, LFTs, amylase, CBC. The literature also suggests monitoring coagulation. After start, and while at steady state, a surveillance level should be drawn at trough. Suggestion: 1. I will stop the olanzapine, due to QTc prolongation. 2. I will order baseline labs: ammonia, liver function tests, amylase and CBC, which should continue to be monitored during the proposed Depakene/valproic acid treatement. 3. I will order Depakene 250 mg PO 3X/day. 4. Please order a surveillance lab level for valproic acid after the ninth dose, or on the 4th morning, at trough, with results to myself, and to the attending medical wheat farmer, if the patient is transferred. 5. Continue to use redirection and soft restraints until Depakene is at a therapeutic level. 6. Haloperidol, PRN, may be considered for severe agitation, provided the QTc prolongation has resolved, and continues to be monitored, and provided that there are no cardiac arrythmias, and also potassium and magnesium are repleted to the upper portion of the normal range, as needed. The use of antipsychotics presents an increased risk for sudden in the elderly. We suggest that cardiology comment on this use. We will continue to follow along with you. Subjective Subjective: The patient is lying in her bed in [place] and 2 point soft wrist restraints with her personal safety monitor present. She is calm, but confused. She is able to tell me that her name is Malinda. She does not answer a question about visual or auditory hallucinations, but does not appear to be referring to an internal source. She has recently had olanzapine 5 mg PO PRN administered for agitation. The patient is safe and in apparent distress. Review of Systems Neurological/Psychological: Reports: confusion, dementia, pre-existing deficit. Objective Last 24 Hrs of Vital Signs/I&O Vital Signs Date Time Temp Pulse Resp B/P B/P Pulse O2 O2 Flow FiO2 Mean Ox Delivery Rate 09/08 0920 Room Air 09/08 0917 78 128/70 09/08 0916 78 128/70 09/08 0916 78 128/70 09/08 0600 98.3 67 18 130/80 100 Room Air 09/08 0000 Room Air 09/07 1357 97.3 78 20 138/62 93 Room Air Intake & Output 09/08 1600 09/08 0800 09/08 0000 Intake Total 500 Output Total Balance 500 Intake, Oral 500 Number 0 Bowel Movements Physical Exam: Not performed. Physical Exam General Appearance: no apparent distress, awake, comfortable, lethargic, obese Neurologic/Psychiatric: awake Current Medications: Current Medications Sig/Keisha Start time Last Medication Dose Route Stop Time Status Admin Amlodipine Besylate 5 MG DAILY 09/04 1000 AC 09/08 PO 0916 Aspirin 81 MG DAILY 09/04 1000 AC 09/08 PO 0917 Cyanocobalamin 250 MCG DAILY 09/06 1128 AC 09/08 PO 0916 Dextrose/Sodium 1,000 ML Q13H 09/08 0915 AC 09/08 Chloride IV 0929 Dextrose/Sodium 1,000 ML ONCE ONE 09/06 1600 DC 09/06 Chloride IV 09/07 1159 1652 Docusate Sodium 100 MG DAILY NEEDED PRN 09/04 0145 AC PO Enoxaparin Sodium 40 MG DAILY 09/04 1000 AC 09/08 SC 0917 Haloperidol 1 MG ONCE ONE 09/07 1230 DC 09/07 IM 09/07 1231 1229 Hydrochlorothiazide 12.5 MG DAILY 09/04 1000 AC 09/08 PO 0917 Losartan Potassium 100 MG DAILY 09/04 1000 AC 09/08 PO 0917 Memantine 10 MG DAILY 09/07 1000 AC 09/08 PO 0916 Metoprolol Succinate 50 MG DAILY 09/04 1000 AC 09/08 PO 0916 Olanzapine 5 MG Q12P PRN 09/08 0915 AC 09/08 PO 0916 Olanzapine 2.5 MG Q12P PRN 09/07 0915 DC 09/07 PO 1029 Polyethylene Glycol 17 GM DAILY 09/04 1000 AC 09/07 PO 1015 Results Last 24 Hrs of Labs/Mics: Laboratory Tests 09/06 07 Chemistry Sodium (137 - 145 mmol/L) 140 Potassium (3.5 - 5.1 mmol/L) 3.6 Chloride (98 - 107 mmol/L) 102 Carbon Dioxide (22 - 30 mmol/L) 28 Anion Gap (5 - 16) 10 BUN (7 - 17 mg/dL) 25 H Creatinine (0.5 - 1.0 mg/dL) 1.0 Estimated GFR (>60 ml/min) 53 L BUN/Creatinine Ratio (7 - 25 %) 25.0
[2017-09-08 12:11] VITALS: BP 148/62
[2017-09-08 14:23] VITALS: BP 128/54
[2017-09-08 21:49] VITALS: BP 112/56
[2017-09-09 06:32] VITALS: BP 104/60
--- NOTE | 2017-09-09 07:38 | PN- Housestaff ---
David Simpson 09/09/17 0738: Subjective Follow-up For: Worsening dementia RLL infiltrate - ruled out Hypernatremia - resolved Acute Delirium Subjective: No acute events or complaints overnight. Patient did not require jeff or restraints. Review of Systems Constitutional: Reports: see HPI. Objective Last 24 Hrs of Vital Signs/I&O Vital Signs Date Time Temp Pulse Resp B/P B/P Pulse O2 O2 Flow FiO2 Mean Ox Delivery Rate 09/09 0632 97.8 62 20 104/60 94 Room Air / 2149 97.8 62 19 112/56 92 Room Air / 1600 Room Air / 1423 98.6 62 20 128/54 93 Room Air / 1211 97.4 72 20 148/62 95 Room Air / 0920 Room Air / 0917 78 128/70 04/ 0916 78 128/70 04/ 0916 78 128/70 Intake & Output 09/09 1600 / 0800 / 0000 Intake Total 480 400 Output Total 500 Balance -20 400 Intake, Oral 480 400 Output, Urine 500 Physical Exam General Appearance: Disoriented Cardiovascular: Regular Rate, Normal S1, Normal S2 Lungs: Clear to Auscultation, Normal Air Movement Abdomen: Normal Bowel Sounds, Soft, No Tenderness Current Medications: Current Medications Sig/Keisha Start time Last Medication Dose Route Stop Time Status Admin Amlodipine Besylate 5 MG DAILY 09/04 1000 AC 09/08 PO 0916 Aspirin 81 MG DAILY 09/04 1000 AC 09/08 PO 0917 Cyanocobalamin 250 MCG DAILY 09/06 1128 AC 09/08 PO 0916 Dextrose/Sodium 1,000 ML Q13H 09/08 0915 AC 09/08 Chloride IV 2244 Divalproex Sodium 250 MG Q8H / 1600 AC 09/09 PO 0810 Docusate Sodium 100 MG DAILY NEEDED PRN 09/04 0145 AC PO Enoxaparin Sodium 40 MG DAILY 09/04 1000 AC 09/08 SC 0917 Hydrochlorothiazide 12.5 MG DAILY 09/04 1000 AC 09/08 PO 0917 Losartan Potassium 100 MG DAILY 09/04 1000 AC 09/08 PO 0917 Memantine 10 MG DAILY 09/09 1000 AC PO Memantine 5 MG AT BEDTIME 09/08 2300 AC 09/09 PO 0005 Memantine 10 MG DAILY 09/07 1000 DC 09/08 PO 0916 Metoprolol Succinate 50 MG DAILY 09/04 1000 AC 09/08 PO 0916 Olanzapine 5 MG Q12P PRN 09/08 0815 DC 09/08 PO 0916 Olanzapine 2.5 MG Q12P PRN 09/07 0915 DC 09/07 PO 1029 Polyethylene Glycol 17 GM DAILY 09/04 1000 AC 09/07 PO 1015 Valproic Acid 250 MG Q8H 09/08 1600 CAN PO Last 24 Hrs of Lab/Wilder Results Last 24 Hrs of Labs/Mics: Laboratory Tests 09/09/17 0714: Sodium Pending, Potassium Pending, Chloride Pending, Carbon Dioxide Pending, Anion Gap Pending, BUN Pending, Creatinine Pending, BUN/Creatinine Ratio Pending , CBC w Diff NO MAN DIFF REQ, RBC 5.11, MCV 83.0, MCH 27.7, MCHC 33.4, RDW 14.6 H, MPV 7.4, Gran % 59.3, Lymphocytes % 25.3, Monocytes % 8.7, Eosinophils % 6.0 H, Basophils % 0.7, Absolute Granulocytes 3.6, Absolute Lymphocytes 1.6, Absolute Monocytes 0.5, Absolute Eosinophils 0.4, Absolute Basophils 0 09/08/17 1349: AST Cancelled, ALT Cancelled, Alkaline Phosphatase Cancelled, Amylase Cancelled 09/08/17 1349: Total Bilirubin 0.7, Direct Bilirubin 0.5 H, AST 52 H, ALT 48, Alkaline Phosphatase 63, Ammonia 23, Lactate Dehydrogenase 688 H, Amylase 64 Assessment/Plan Assessment: Mr. Corado an 82-year-old female with a PMH significant for dementia, HTN, HLD, CAD, bilateral carotid artery stenosis, TIAs, chronic back pain who was brought in by her son for worsening confusion, and bizarre behavior. Problem list: Worsening dementia RLL infiltrate - ruled out Hypernatremia - resolved Acute Delirium Plan: Continue Depakote 250mg q8, hold for oversedation Discontinue Quetiapine 12.5 mg BID due to QTc prolongation IM Haldol if necessary but with caution given QTc prolongation Continue Mementine titration up to 20 mg per day - verified with Dr. Landers office Continue Vitamin B12 supplementation Watch off antibiotics No growth on blood and urine cultures TSH/T4 and Folate wnl, Lyme titer negative, Vit B12 low Carotid US showe 50-69% stenosis in proximal R ICA, L ICA could not be visualized Await Geriatric psych discharge today Psych recommendations appreciated Diet: puree, thin liquids DVT prophylaxis: David Weber CODE STATUS: DNR/DNI Problem List: 1. B12 deficiency 2. Advanced dementia 3. Acute delirium Pain Ratin Pain Location: NA Pain Goal: Remain pain free Pain Plan: NA Tomorrow's Labs & Rationales: none Josephine Dietz MD 09/09/17 1412: Attending MD Review Statement Attending Statement Attending MD Statement: examined this patient, discuss w/resident/PA/RIG WELDER, agreed w/resident/PA/RIG WELDER, reviewed EMR data (avail), discussed with nursing, discussed with case mgmt, amended to note Attending Assessment/Plan: Patient seen and examined. Resting comfortably. She was not in any obvious distress. She was alert and conversant however she was oriented only to person and a lot of her speech was incoherent she would answer some questions appropriately. We have obtained a bed for her at the geriatric psychiatric facility and she will be discharged today. Further care will be carried out at the facility. Patient's son is in agreement with this plan.
[2017-09-09 07:56] LABS: ABSOLUTE BASOPHIL COUNT 0 /CUMM (0.0-0.2); ABSOLUTE EOSINOPHIL COUNT 0.4 /CUMM (0.0-0.7); ABSOLUTE GRANULOCYTE CT 3.6 /CUMM (1.4-6.5); ABSOLUTE LYMPH COUNT 1.6 /CUMM (1.2-3.4); ABSOLUTE MONOCYTE COUNT 0.5 /CUMM (0.10-0.60); BASOPHIL % 0.7 % (0.0-2.0); GRANULOCYTE % 59.3 % (42.2-75.2); HEMATOCRIT 42.4 % (37-47); MEAN CORPUSCULAR HGB 27.7 PG (27.0-31.0); MEAN CORPUSCULAR HGB CONC 33.4 G/DL (33.0-37.0); MEAN PLATELET VOLUME 7.4 FL (7.4-10.4); PLATELET COUNT 296 /CUMM (130-400); RBC DISTRIBUTION WIDTH 14.6 % (11.5-14.5); RED BLOOD CELL CT 5.11 /CUMM (4.20-5.40); WHITE BLOOD CELL COUNT 6.1 /CUMM (4.8-10.8)
--- NOTE | 2017-09-09 10:47 | PN- Psychiatry ---
Assessment/Plan Impression: The patient is delusional today, although her hallucinations observed by staff yesterday are not currently present. She wishes to go home to see her mother, who is . Her son, Mahamed, with whom she had been living, is concerned about her behavior at home, alone, while he is at work. She has left the stove on and burned pots and pans on several occasions, and has been experiencing more psychotic symptoms lately. She probably has a vascular dementia, owing to her history of strokes and her waxing and waning agitation. She is responding well to Depakote. We have drawn baseline labs, and suggest monitoring of LFT, amylase, platelet count and ammonia levels. Suggestion: 1. Continue Depakote Sprinkles 250 mg PO every 8 hours for agitation, an off- label use. Please monitor LFT, ammonia, amylase, CBC. The literature also suggests monitoring coagulation. 2. Surveillance valproic acid level after the 9th dose at trough, with results to myself and to the attending physician. 3. Continue Namenda 10 mg PO daily. 4. Continue to use redirection and soft restraints, as indicated before other restraints, including chemical are considered. 5. Haloperidol, PRN, may be considered for severe or dangersous agitation, provided the QTc prolongation has resolved, and continues to be monitored, and provided that there are no cardiac arrythmias, and also potassium and magnesium are repleted to the upper portion of the normal range, as needed. The use of antipsychotics presents an increased risk for sudden in the elderly. We suggest that cardiology comment on this use. We will continue to follow along with you. Subjective Subjective: The patient is calmer today, and is sitting in bed, not in restraints, with a safety monitor present in the room. She is pleasantly confused, and is oriented to her name, only. She denies hallucinations, but other TC includes wanting to go home to see her mother. She denies suicidal or homicidal ideation. She reports that she feels safe here. Objective Last 24 Hrs of Vital Signs/I&O Vital Signs Date Time Temp Pulse Resp B/P B/P Pulse O2 O2 Flow FiO2 Mean Ox Delivery Rate 09/09 0940 60 140/82 09/09 0939 60 140/82 09/09 0938 60 140/82 09/09 0800 Room Air 09/09 0532 97.8 62 20 104/60 94 Room Air 04/ 2149 97.8 62 19 112/56 92 Room Air /05 1600 Room Air / 1423 98.6 62 20 128/54 93 Room Air / 1211 97.4 72 20 148/62 95 Room Air Intake & Output / 1600 04/06 0800 04/ 0000 Intake Total 780 480 400 Output Total 500 Balance 780 -20 400 Intake, Oral 780 480 400 Output, Urine 500 Physical Exam: Not performed Physical Exam General Appearance: no apparent distress, alert, awake, comfortable Neurologic/Psychiatric: awake, alert Current Medications: Current Medications Sig/Keisha Start time Last Medication Dose Route Stop Time Status Admin Amlodipine Besylate 5 MG DAILY 09/04 1000 AC 09/09 PO 0939 Aspirin 81 MG DAILY 09/04 1000 AC 09/09 PO 0940 Cyanocobalamin 250 MCG DAILY 09/06 1128 AC 09/09 PO 0938 Dextrose/Sodium 1,000 ML Q13H 09/08 0915 AC 09/08 Chloride IV 2244 Divalproex Sodium 250 MG Q8H 09/08 1600 AC 09/09 PO 0810 Docusate Sodium 100 MG DAILY NEEDED PRN 09/04 0145 AC PO Enoxaparin Sodium 40 MG DAILY 09/04 1000 AC 09/09 SC 0940 Hydrochlorothiazide 12.5 MG DAILY 09/04 1000 AC 09/09 PO 0939 Losartan Potassium 100 MG DAILY 09/04 1000 AC 09/09 PO 0940 Memantine 10 MG DAILY 09/09 1000 AC 09/09 PO 0939 Memantine 5 MG AT BEDTIME 09/08 2300 AC 09/09 PO 0005 Memantine 10 MG DAILY 09/07 1000 DC 09/08 PO 0916 Metoprolol Succinate 50 MG DAILY 09/04 1000 AC 09/09 PO 0938 Olanzapine 5 MG Q12P PRN 09/08 0915 DC 09/08 PO 0916 Polyethylene Glycol 17 GM DAILY 09/04 1000 AC 09/09 PO 0937 Potassium Chloride 40 MEQ ONCE ONE 09/09 0815 DC PO 09/09 0916 Valproic Acid 250 MG Q8H 09/08 1600 CAN PO Results Last 24 Hrs of Labs/Mics: Laboratory Tests 09/09 09/08 04 0714 1349 1349 Chemistry Sodium (137 - 145 mmol/L) 143 Potassium (3.5 - 5.1 mmol/L) 3.3 L Chloride (98 - 107 mmol/L) 103 Carbon Dioxide (22 - 30 mmol/L) 27 Anion Gap (5 - 16) 13 BUN (7 - 17 mg/dL) 22 H Creatinine (0.5 - 1.0 mg/dL) 1.1 H Estimated GFR (>60 ml/min) 47 L BUN/Creatinine Ratio (7 - 25 %) 20.0 Total Bilirubin (0.2 - 1.3 mg/dL) 0.7 Direct Bilirubin (< 0.4 mg/dL) 0.5 H AST (14 - 36 U/L) Cancelled 52 H ALT (9 - 52 U/L) Cancelled 48 Alkaline Phosphatase (<127 U/L) Cancelled 63 Ammonia (9 - 30 umol/L) 23 Lactate Dehydrogenase (313 - 618 U/L) 688 H Amylase (30 - 110 U/L) Cancelled 64 Hematology CBC w Diff NO MAN DIFF REQ WBC (4.8 - 10.8 /CUMM) 6.1 RBC (4.20 - 5.40 /CUMM) 5.11 Hgb (12.0 - 16.0 G/DL) 14.2 Hct (37 - 47 %) 42.4 MCV (81.0 - 99.0 FL) 83.0 MCH (27.0 - 31.0 PG) 27.7 MCHC (33.0 - 37.0 G/DL) 33.4 RDW (11.5 - 14.5 %) 14.6 H Plt Count (130 - 400 /CUMM) 296 MPV (7.4 - 10.4 FL) 7.4 Gran % (42.2 - 75.2 %) 59.3 Lymphocytes % (20.5 - 51.1 %) 25.3 Monocytes % (1.7 - 9.3 %) 8.7 Eosinophils % (0 - 5 %) 6.0 H Basophils % (0.0 - 2.0 %) 0.7 Absolute Granulocytes (1.4 - 6.5 /CUMM) 3.6 Absolute Lymphocytes (1.2 - 3.4 /CUMM) 1.6 Absolute Monocytes (0.10 - 0.60 /CUMM) 0.5 Absolute Eosinophils (0.0 - 0.7 /CUMM) 0.4 Absolute Basophils (0.0 - 0.2 /CUMM) 0
[2017-09-09] MEDS ORDERED: NAMENDA5 M1 PO (11:11)
[2017-09-09] MEDS ORDERED: DEPAKOTE SPRIN125 M1 PO (11:11)
--- NOTE | 2017-09-09 11:17 | Patient Discharge Instructions ---
Discharge Instructions General Discharge Information You were seen/treated for: Worsening dementia RLL infiltrate - ruled out Hypernatremia - resolved You had these procedures: none Special Instructions: Monitor LFT, ammonia, amylase while on Depakote Obtain a valproic acid level after the 9th dose at trough Continue Namenda upward titration Follow up with [facility] to reassess frequency of Depakote Diet Additional DIET Information: Regular, puree/thin Activity Full Activity/No Limits: Yes Acute Coronary Syndrome Inclusion Criteria At DC or during hospital stay patient has or had the following: ACS DIAGNOSIS No Discharge Core Measures Meds if any: Prescribed or Continued at Discharge Meds if any: NOT Prescribed or Continued at Discharge Congestive Heart Failure Inclusion Criteria At DC or during hospital stay patient has or had the following: CHF DIAGNOSIS No Discharge Core Measures Meds if any: Prescribed or Continued at Discharge Meds if any: NOT Prescribed or Continued at Discharge Cerebrovascular accident Inclusion Criteria At DC or during hospital stay patient has or had the following: CVA/TIA Diagnosis No Discharge Core Measures Meds if any: Prescribed or Continued at Discharge Meds if any: NOT Prescribed or Continued at Discharge Venous thromboembolism Inclusion Criteria VTE Diagnosis No VTE Type NONE VTE Confirmed by (Test) NONE Discharge Core Measures - Per Current guidelines, there needs to be overlap - treatment for the first 5 days of Warfarin therapy. - If discharged on Warfarin prior to 5 days of - overlap therapy, the patient will need to be - assessed for post discharge needs including - *Post discharge parental anticoagulation - *Warfarin and/or parental anticoagulation education - *Follow up date to check INR post discharge At least 5 days overlap therapy as Inpatient No Meds if any: Prescribed or Continued at Discharge Note: Overlap Therapy is Warfarin and Anticoagulant Meds if any: NOT Prescribed or Continued at Discharge
[2017-09-09 12:42] VITALS: BP 140/82
[2017-09-09 14:03] VITALS: BP 104/60
== END 2017-09-09 19:00 | disposition other institution (70) | DRG 884 ==
LOC: ERH 22:28 → 2NB 09-04 00:13 → ERHI 09-04 00:13 → ENRESERV 09-04 01:13 → 2NB 09-04 02:52 → ENPENDDIS 09-09 11:14 → 2NB 09-09 19:00
PROVIDERS: Emergency Medicine; Student in an Organized Health Care Education/Training Program
DX: F03.91 Unspecified dementia, unspecified severity, with behavioral disturbance (principal); E87.0 Hyperosmolality and hypernatremia; F05 Delirium due to known physiological condition; I65.23 Occlusion and stenosis of bilateral carotid arteries; E66.9 Obesity, unspecified; Z68.35 Body mass index [BMI] 35.0-35.9, adult; R44.1 Visual hallucinations; I10 Essential (primary) hypertension; E78.5 Hyperlipidemia, unspecified; I25.10 Atherosclerotic heart disease of native coronary artery without angina pectoris; Z86.73 Personal history of transient ischemic attack (TIA), and cerebral infarction without residual deficits; M54.9 Dorsalgia, unspecified; H91.90 Unspecified hearing loss, unspecified ear; M19.90 Unspecified osteoarthritis, unspecified site; W18.30XA Fall on same level, unspecified, initial encounter; Z91.81 History of falling; Y92.009 Unspecified place in unspecified non-institutional (private) residence as the place of occurrence of the external cause; Z66 Do not resuscitate; Z79.82 Long term (current) use of aspirin; F32.9 Major depressive disorder, single episode, unspecified; Z78.1 Physical restraint status; R45.1 Restlessness and agitation; E53.9 Vitamin B deficiency, unspecified
CPT/HCPCS: 2NBP; 86618; 36415; 36592; 71046; 81001; 82436; 87040; 87086; 93005; 93010; 96374; 97116-GO; 97161-GP; 99232; J0696; J1630; J1650; J3490; J7042; J7060